=== PATIENT | male | born 1980 | race Caucasian/White ===

== ENCOUNTER 2017-01-03 20:33 | Emergency (ER) | payer OTHER ==
[~2017-01-03] VITALS: Ht 185.4 cm; Wt 97.7 kg
[2017-01-03] MEDS ORDERED: IBUPROFEN 600 MG TAB PO ONE (22:15)
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
[2017-01-03] MEDS ORDERED: CYCL10TA PO (23:23)
[2017-01-03] MEDS ORDERED: IBUP-1022 PO (23:23)
[2017-01-03 23:29] VITALS: BP 122/56
[2017-01-03] MEDS ORDERED: CYCLOBENZAPRINE 10 MG TAB PO ONE (23:30)
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
== END 2017-01-03 23:30 | disposition home or self-care (01) ==
LOC: M ED 20:33
DX: S16.1XXA Strain of muscle, fascia and tendon at neck level, initial encounter (principal); V23.4XXA Motorcycle driver injured in collision with car, pick-up truck or van in traffic accident, initial encounter; Y92.410 Unspecified street and highway as the place of occurrence of the external cause; Y93.89 Activity, other specified; Y99.9 Unspecified external cause status